=== PATIENT | male | born 1980 | race Two or more races ===

== ENCOUNTER 2024-05-26 19:32 | Emergency (ER) | payer SELFPAY ==
[2024-05-26 19:44] VITALS: BP 161/93; PULSE 97; RESP 18; TEMP 37.2; O2SAT 98; BMI 27.4
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
== END 2024-05-26 20:13 ==
PROVIDERS: Emergency Provider Emergency Medicine
DX: Z02.89 Encounter for other administrative examinations (principal); S20.219A Contusion of unspecified front wall of thorax, initial encounter; V89.2XXA Person injured in unspecified motor-vehicle accident, traffic, initial encounter
CPT/HCPCS: 99281